=== PATIENT | female | born 1990 | race Caucasian/White ===

== ENCOUNTER 2016-08-19 04:00 | Emergency (ER) | payer SELFPAY ==
[2016-08-19 04:10] VITALS: BP 123/74
[2016-08-19] MEDS ORDERED: PREDNISONE 20 MG TABLET PO ONE (04:11)
[2016-08-19] MEDS ORDERED: IPRATROPIUM/ALBUTEROL 0.5-2.5 MG/3 ML AMPUL NEB ONE (04:11)
[2016-08-19] MEDS: ALBUTEROL SULFATE 0.083% NEB 2.5 MG/3 ML AMPUL NEB SCH ×2 (04:15→04:43)
[2016-08-19] MEDS ORDERED: ALBUTEROL SULFATE HFA (90 MCG/PUFF) 8 GM MDI (1 MDI/ER DISP) IH ONE (05:15)
--- NOTE | 2016-08-19 05:15 | ER Document Report ---
ED General - General Chief Complaint: Asthma Exacerbation Stated Complaint: TROUBLE BREATHING Mode of Arrival: Ambulatory Information source: Patient Notes: Patient presents emergency department reports difficulty breathing. Reports nonproductive cough for the past week and half. Reports wheezing today. She reports she has been using her nebs a few times a day and inhaler but ran out of both medications today. Patient reports history of asthma denies hospitalizations or intubation for this. Denies fever vomiting diarrhea. Patient does smoke. TRAVEL OUTSIDE OF THE [place] IN LAST 30 DAYS: No - HPI Onset: Last week Onset/Duration: Persistent Quality of pain: No pain Associated symptoms: None Exacerbated by: Denies Relieved by: Denies Similar symptoms previously: Yes Recently seen / treated by doctor: No - Related Data Allergies/Adverse Reactions: No Known Allergies Allergy (Verified 04/18/16 20:10) Home Medications: Current Home Medications Albuterol Sulfate [Albuterol Sulfate 2.5mg/3 mL] 1 vial IH Q4 PRN 08/19/16 [ History] Budesonide [Pulmicort Neb 0.25 mg/2 ml Ampul] 0.25 mg NEB Q6HP PRN 08/19/16 [ History] Past Medical History - General Information source: Patient Last Menstrual Period: now - Social History Smoking Status: Current Every Day Smoker Cigarette use (# per day): Yes Frequency of alcohol use: None Drug Abuse: None Family History: Reviewed & Not Pertinent Patient has suicidal ideation: No Patient has homicidal ideation: No Pulmonary Medical History: Reports: Hx Asthma Neurological Medical History: Reports: Hx Migraine Renal/ Medical History: Denies: Hx Peritoneal Dialysis Past Surgical History: Reports: Hx Cholecystectomy - Immunizations Immunizations up to date: Yes Hx Diphtheria, Pertussis, Tetanus Vaccination: Yes Review of Systems - Review of Systems Notes: Review HPI for review of systems., All other systems negative Physical Exam - Vital signs Vitals: Temp Pulse Resp BP Pulse Ox 97.6 F 92 20 123/74 98 08/19/16 04:07 08/19/16 04:07 08/19/16 04:07 08/19/16 04:07 08/19/16 04:07 - Notes Notes: PHYSICAL EXAMINATION: GENERAL: Well-appearing and in no acute distress nontoxic looking HEAD: Atraumatic, normocephalic. EYES: Pupils equal round and reactive to light, extraocular movements intact, sclera anicteric, conjunctiva are normal. speaks in clear voice ENT: nares patent, oropharynx clear without exudates. Moist mucous membranes. NECK: Normal range of motion, supple without lymphadenopathy LUNGS: CTAB and equal. + expiratory wheeze. no rales or rhonchi. HEART: Regular rate and rhythm without murmurs ABDOMEN: Soft, no tenderness. No guarding, no rebound EXTREMITIES: Normal range of motion, no pitting edema. No cyanosis. NEUROLOGICAL: Cranial nerves grossly intact. Normal sensory/motor exams. PSYCH: Normal mood, normal affect. SKIN: Warm, Dry, normal turgor, no rashes or lesions noted Course - Re-evaluation Re-evalutation: 08/19/16 Patient has good in no distress speaks in clear voice no shortness of breath. Patient will be prescribed steroids and neb treatments , sent home with the albuterol inhaler. Patient instructed on the importance of quit smoking. She verbalized understanding to all information. - Vital Signs Vital signs: Temp Pulse Resp BP Pulse Ox 97.6 F 92 20 123/74 98 08/19/16 04:07 08/19/16 04:07 08/19/16 04:07 08/19/16 04:07 08/19/16 04:07 Discharge - Discharge Clinical Impression: Asthma exacerbation, Cough Condition: Stable Disposition: HOME, SELF-CARE Instructions: Inhaled Bronchodilators ([facility]), Stop Smoking ([facility]), Asthma ([facility]) Additional Instructions: *You have been evaluated for a cough, asthma exacerbation *Take medication as prescribed *Increase fluids *Quit smoking *Use inhaler and neb treatments as prescribed *Monitor your temperature, take Tylenol as indicated *Follow up with a primary care provider within one week for recheck *Return to ED for increasing fever, cough, worsening condition, changes, needs, difficulty breathing, concerns Prescriptions: Albuterol Sulfate [Ventolin 0.083% Neb 2.5 mg/3 mL Ampul] 1 vial NEB Q4 #1 unit Prednisone 60 mg PO DAILY #9 tablet Forms: Smoking Cessation Education, Elevated Blood Pressure
== END 2016-08-19 05:31 | disposition home or self-care (01) ==
LOC: ER 04:00
DX: J45.901 Unspecified asthma with (acute) exacerbation (principal); R05 Cough; R06.02 Shortness of breath; Z79.899 Other long term (current) drug therapy; F17.210 Nicotine dependence, cigarettes, uncomplicated
CPT/HCPCS: 94640 ×2; 99284; J7512; J3490; J7620

== ENCOUNTER 2016-09-09 23:24 | Emergency (ER) | payer SELFPAY ==
[2016-09-10] MEDS ORDERED: PREDNISONE 20 MG TABLET PO ONE (00:34)
[2016-09-10] MEDS ORDERED: IPRATROPIUM/ALBUTEROL 0.5-2.5 MG/3 ML AMPUL NEB ONE (00:34)
[2016-09-10] MEDS: ALBUTEROL SULFATE 0.083% NEB 2.5 MG/3 ML AMPUL NEB SCH ×2 (00:47→02:12)
[2016-09-10] MEDS ORDERED: HYDROCODONE/ACETAMINOPHEN 5-325 MG TABLET PO ONE (02:18)
--- NOTE | 2016-09-10 02:33 | ER Document Report ---
ED General - General Chief Complaint: Asthma Exacerbation Stated Complaint: OVER HEATING AND CANT BREATH Time seen by provider: 02:15 Notes: Patient is a 26-year-old female with a history of asthma that comes emergency department for chief complaint of wheezing, cough, sinus pain, postnasal drip, and productive yellowish greenish sputum. Patient states she had chills over the past day or so. She states she was evaluated about a month ago, given albuterol treatments, she has been using albuterol at home. Patient states she smokes. LMP within the past month. Denies any other medical history. TRAVEL OUTSIDE OF THE [place] IN LAST 30 DAYS: No - Related Data Allergies/Adverse Reactions: No Known Allergies Allergy (Verified 04/18/16 20:10) Past Medical History - General Information source: Patient - Social History Smoking Status: Current Every Day Smoker Smoking Education Provided: Yes - <3 min Frequency of alcohol use: None Drug Abuse: None Lives with: Family Family History: Reviewed & Not Pertinent Pulmonary Medical History: Reports: Hx Asthma Neurological Medical History: Reports: Hx Migraine Renal/ Medical History: Denies: Hx Peritoneal Dialysis Past Surgical History: Reports: Hx Cholecystectomy - Immunizations Immunizations up to date: Yes Hx Diphtheria, Pertussis, Tetanus Vaccination: Yes Review of Systems - Review of Systems Constitutional: No symptoms reported EENT: See HPI Cardiovascular: No symptoms reported Respiratory: See HPI Gastrointestinal: No symptoms reported Genitourinary: No symptoms reported Female Genitourinary: No symptoms reported Musculoskeletal: No symptoms reported Skin: No symptoms reported Hematologic/Lymphatic: No symptoms reported Neurological/Psychological: No symptoms reported Physical Exam - Vital signs Vitals: Temp Pulse Resp BP Pulse Ox 98.6 F 112 H 24 H 128/67 H 94 09/10/16 00:28 09/10/16 00:28 09/10/16 00:28 09/10/16 00:28 09/10/16 00:28 Interpretation: Normal - General General appearance: Appears well In distress: None - HEENT Head: Normocephalic, Atraumatic Eyes: Normal Conjunctiva: Normal Extraocular movements intact: Yes Eyelashes: Normal Pupils: PERRL Ears: Normal External canal: Normal Tympanic membrane: Normal Sinus: Maxillary - Mild tenderness over the bilateral maxillary sinuses Nasal: Other - Nasal congestion with no abnormalities otherwise Mouth/Lips: Normal Mucous membranes: Normal Pharynx: Erythema - mild. No: Exudate Neck: Normal. No: Anterior cervical chain, Posterior cervical chain - Respiratory Respiratory status: No respiratory distress. No: Tachypnea - Patient is not in respiratory distress on my exam Chest status: Nontender Breath sounds: Decreased air movement, Nonproductive cough, Wheezing - Faint end expiratory wheezes, good breath sounds otherwise Chest palpation: Normal - Cardiovascular Rhythm: Regular. No: Tachycardia - Not tachycardic on my exam Heart sounds: Normal auscultation, S1 appreciated, S2 appreciated Murmur: No - Abdominal Inspection: Normal Distension: No distension Bowel sounds: Normal Tenderness: Nontender. No: Tender, Guarding Organomegaly: No organomegaly - Back Back: Normal, Nontender. No: Tender - Extremities General upper extremity: Normal inspection, Nontender, Normal color, Normal ROM , Normal temperature General lower extremity: Normal inspection, Nontender, Normal color, Normal ROM , Normal temperature, Normal weight bearing. No: Deirdre's sign - Neurological Neuro grossly intact: Yes Cognition: Normal Orientation: AAOx4 Dexter Coma Scale Eye Opening: Spontaneous Randal Coma Scale Verbal: Oriented Dexter Coma Scale Motor: Obeys Commands Randal Coma Scale Total: 15 Speech: Normal Motor strength normal: LUE, RUE, LLE, RLE Sensory: Normal - Psychological Associated symptoms: Normal affect, Normal mood - Skin Skin Temperature: Warm Skin Moisture: Dry Skin Color: Normal Course - Re-evaluation Re-evalutation: Examination is consistent with sinusitis, bronchitis, asthma exacerbation. Discussed tobacco abuse and smoking cessation, patient states that she is motivated to try to stop, treating for asthma exacerbation and covering with antibiotics. Discussed return precautions in detail, discussed primary care follow-up, patient states understanding and agreement. - Vital Signs Vital signs: Temp Pulse Resp BP Pulse Ox 98.0 F 90 18 121/62 100 09/10/16 04:20 09/10/16 04:20 09/10/16 04:20 09/10/16 04:20 09/10/16 04:20 Discharge - Discharge Clinical Impression: Asthma exacerbation, Cough, Tobacco abuse Sinusitis Qualifiers: Sinusitis location: frontal Chronicity: acute Recurrence: non-recurrent Qualified Code(s): J01.10 - Acute frontal sinusitis, unspecified Condition: Stable Disposition: HOME, SELF-CARE Instructions: Oral Narcotic Medication ([facility]) Additional Instructions: Chest x-ray does not show pneumonia or other abnormality. Examination is consistent with an upper respiratory and sinus infection with asthma exacerbation. Take prednisone as directed, use your albuterol at home, take the doxycycline antibiotic as directed. Stop smoking. Follow-up with primary care. Return the emergency department for any concerning or worsening symptoms. Prescriptions: Albuterol Sulfate [Proair HFA Inhalation Aerosol 8.5 gm MDI] 2 puff IH Q4H PRN # 1 mdi PRN Reason: Doxycycline Hyclate 100 mg PO BID #14 capsule Phenylephrine HCl/Cod/Prometh [Phenergan Vc-Codeine Syrup] 5 ml PO Q6 PRN #1 bottle PRN Reason: Prednisone [Deltasone 20 mg Tablet] 3 tab PO DAILY 5 Days Forms: Smoking Cessation Education
[2016-09-10] MEDS ORDERED: DOXYCYCLINE HYCLATE 100 MG TABLET PO ONE (03:28)
[2016-09-10 05:34] VITALS: BP 121/62
== END 2016-09-10 04:30 | disposition home or self-care (01) ==
LOC: ER 23:24
DX: J01.10 Acute frontal sinusitis, unspecified (principal); J45.901 Unspecified asthma with (acute) exacerbation; R05 Cough; R06.2 Wheezing; F17.200 Nicotine dependence, unspecified, uncomplicated
CPT/HCPCS: 94640 ×2; 99285; 71020; J7512; J7620

== ENCOUNTER 2018-01-28 03:58 | Emergency (ER) | payer SELFPAY ==
[2018-01-28 04:07] VITALS: BP 103/83
[2018-01-28] MEDS ORDERED: PREDNISONE 20 MG TABLET PO ONE (04:13)
[2018-01-28] MEDS ORDERED: IPRATROPIUM/ALBUTEROL 0.5-2.5 MG/3 ML AMPUL NEB ONE ×2 (04:13→05:34)
[2018-01-28] MEDS: ALBUTEROL SULFATE 0.083% NEB 2.5 MG/3 ML AMPUL NEB SCH ×2 (04:25→04:53)
--- NOTE | 2018-01-28 05:36 | ER Document Report ---
ED Medical Screen (RME) - General Chief Complaint: Shortness Of Breath Stated Complaint: TROUBLE BREATHING Time Seen by Provider: 01/28/18 05:30 Notes: 27-year-old female, history of asthma, smoker, comes by EMS for chief complaint of difficulty breathing, tightness and pain in the chest, symptoms started about 2 days ago. Denies fever. Reports some cough/cold symptoms. TRAVEL OUTSIDE OF THE [place] IN LAST 30 DAYS: No - Related Data Allergies/Adverse Reactions: No Known Allergies Allergy (Verified 01/28/18 03:59) Past Medical History Pulmonary Medical History: Reports: Hx Asthma Neurological Medical History: Reports: Hx Migraine Renal/ Medical History: Denies: Hx Peritoneal Dialysis Past Surgical History: Reports: Hx Cholecystectomy - Immunizations Immunizations up to date: Yes Hx Diphtheria, Pertussis, Tetanus Vaccination: Yes Physical Exam - Vital signs Vitals: Temp Pulse Resp BP Pulse Ox 97.3 F 85 22 H 103/83 92 01/28/18 04:06 01/28/18 04:06 01/28/18 04:06 01/28/18 04:06 01/28/18 04:06 - Respiratory Respiratory status: No respiratory distress Breath sounds: Wheezing - Some inspiratory and expiratory wheezes, borderline tachypnea, no labored breathing or distress Course - Vital Signs Vital signs: Temp Pulse Resp BP Pulse Ox 97.3 F 85 22 H 103/83 92 01/28/18 04:06 01/28/18 04:06 01/28/18 04:06 01/28/18 04:06 01/28/18 04:06
[2018-01-28] MEDS ORDERED: ALBUTEROL SULFATE HFA (90 MCG/PUFF) 8 GM MDI (1 MDI/ER DISP) IH ONE (06:29)
[2018-01-28] MEDS ORDERED: BUDESONIDE/FORMOTEROL 80-4.5 MCG 60 PUFF/6.9 GM MDI IH ONE (06:48)
--- NOTE | 2018-01-28 07:47 | RADIOLOGY REPORT (SQ) ---
Chest single view on 01/28/2018 CLINICAL INDICATION: Chest pain COMPARISON: 09/10/2016 FINDINGS: There is evidence of prior granulomatous disease within the chest. The lungs are otherwise clear. Cardiac, hilar and mediastinal contours are within normal limits. Pulmonary vascularity is within normal limits. No bony abnormality is noted. Impression: No active disease.
== END 2018-01-28 07:40 | disposition home or self-care (01) ==
LOC: ER 03:58
DX: R06.00 Dyspnea, unspecified (principal); Z90.49 Acquired absence of other specified parts of digestive tract
CPT/HCPCS: 94640 ×2; 71045; J3490 ×2; J7512; J7620

== ENCOUNTER 2019-02-04 12:15 | Emergency (ER) | payer SELFPAY ==
[2019-02-04] MEDS ORDERED: IPRATROPIUM/ALBUTEROL 0.5-2.5 MG/3 ML AMPUL NEB ONE (12:41)
--- NOTE | 2019-02-04 12:42 | ER Document Report ---
ED Medical Screen (RME) - General Stated Complaint: FEVER, BREATHING PROBLEMS, VOMITING Time Seen by Provider: 02/04/19 12:38 Mode of Arrival: Wheelchair Information source: Patient Notes: 29-year-old female presents emergency department with nasal congestion and difficulty breathing. Reports history of asthma. Reports she is used her nebulizer machine multiple times without relief of symptoms. Reports symptoms s tarted yesterday. Reports temperature of 102 this morning but she did not take anything for her fever. Denies vomiting diarrhea. Reports boyfriend just got back from [place] a couple weeks ago. Respiratory rate even unlabored. Patient appears to have a lot of nasal congestion. I have greeted and performed a rapid initial assessment of this patient. A comprehensive ED assessment and evaluation of the patient, analysis of test results and completion of the medical decision making process will be conducted by additional ED providers. Dictation of this chart was performed using voice recognition software; therefore, there may be some unintended grammatical errors. TRAVEL OUTSIDE OF THE [place] IN LAST 30 DAYS: No - Related Data Allergies/Adverse Reactions: No Known Allergies Allergy (Verified 02/04/19 12:36) Past Medical History Pulmonary Medical History: Reports: Hx Asthma Neurological Medical History: Reports: Hx Migraine Renal/ Medical History: Denies: Hx Peritoneal Dialysis Past Surgical History: Reports: Hx Cholecystectomy - Immunizations Immunizations up to date: Yes Hx Diphtheria, Pertussis, Tetanus Vaccination: Yes Physical Exam - Vital signs Vitals: Temp Pulse BP Pulse Ox 98.2 F 106 H 113/70 95 02/04/19 12:26 02/04/19 12:26 02/04/19 12:26 02/04/19 12:26 Course - Vital Signs Vital signs: Temp Pulse Resp BP Pulse Ox 98.2 F 106 H 113/70 95 02/04/19 12:26 02/04/19 12:26 02/04/19 12:26 02/04/19 12:26
[2019-02-04 13:31] LABS: ABSOLUTE EOSINOPHILS # (AUTO) 0.2 10^3/uL (0.0-0.6); ABSOLUTE LYMPHOCYTES (AUTO) 0.7 10^3/uL (0.5-4.7); ABSOLUTE MONOCYTES (AUTO) 0.4 10^3/uL (0.1-1.4); ABSOLUTE NEUT (AUTO) 11.7 10^3/uL (1.7-8.2); BASOPHILS % (AUTO) 0.2 % (0-2); EOSINOPHILS % (AUTO) 1.6 % (0-6); HEMATOCRIT 41.2 % (36.0-47.0); HEMOGLOBIN 13.9 g/dL (12.0-15.5); LYMPHOCYTES % (AUTO) 5.4 % (13-45); MEAN CORPUSCULAR HEMOGLOBIN 29.8 pg (27.0-33.4); MEAN CORPUSCULAR HGB CONC 33.7 g/dL (32.0-36.0); MEAN CORPUSCULAR VOLUME 88 fl (80-97); MONOCYTES % (AUTO) 3.4 % (3-13); PLATELET COUNT 285 10^3/uL (150-450); RED BLOOD COUNT 4.66 10^6/uL (3.72-5.28); RED CELL DISTRIBUTION WIDTH 13.8 % (11.5-14.0); SEGMENTED NEUTROPHILS % (AUTO) 89.4 % (42-78); TOTAL CELLS COUNTED % (AUTO) 100 %
[2019-02-04 14:05] LABS: APPEARANCE,URINE SLIGHTLY-CLOUDY; BILIRUBIN,URINE NEGATIVE (NEGATIVE); COLOR,URINE YELLOW; GLUCOSE, URINE NEGATIVE (NEGATIVE); KETONES,URINE NEGATIVE (NEGATIVE); LEUKOCYTE ESTERASE,URINE TRACE (NEGATIVE); NITRITE,URINE NEGATIVE (NEGATIVE); PROTEIN,URINE NEGATIVE (NEGATIVE); URINE SPECIFIC GRAVITY 1.017; UROBILINOGEN,URINE NEGATIVE mg/dL (<2.0)
[2019-02-04 14:14] LABS: ALBUMIN 4.8 g/dL (3.5-5.0); ALKALINE PHOSPHATASE 68 U/L (38-126); ANION GAP 10 (5-19); ASPARTATE AMINO TRANSFERASE 25 U/L (14-36); BILIRUBIN,DIRECT 0.1 mg/dL (0.0-0.4); BILIRUBIN,TOTAL 1.1 mg/dL (0.2-1.3); BLOOD UREA NITROGEN 14 mg/dL (7-20); CALCIUM 9.9 mg/dL (8.4-10.2); CARBON DIOXIDE 25 mmol/L (22-30); CHLORIDE 103 mmol/L (98-107); GLUCOSE 119 mg/dL (75-110); POTASSIUM 3.9 mmol/L (3.6-5.0); TOTAL PROTEIN 8.2 g/dL (6.3-8.2)
[2019-02-04] MEDS ORDERED: ALBUTEROL SULFATE 0.083% NEB 2.5 MG/3 ML AMPUL NEB ONE ×2 (14:24→15:12)
[2019-02-04] MEDS ORDERED: NORMAL SALINE 1000 ML 1,000 ML IV ONE (14:24)
[2019-02-04] MEDS ORDERED: PREDNISONE 20 MG TABLET PO ONE (14:24)
[2019-02-04] MEDS ORDERED: KETOROLAC TROMETHAMINE INJ/PF 30 MG/1 ML SDV IV ONE (14:26)
[2019-02-04] MEDS ORDERED: PROCHLORPERAZINE EDISYLATE INJ 10 MG/2 ML VIAL IV ONE (14:27)
[2019-02-04] MEDS ORDERED: DIPHENHYDRAMINE HCL 50 MG/ML VIAL IV ONE (14:27)
--- NOTE | 2019-02-04 14:33 | ER Document Report ---
ED General - General Chief Complaint: Asthma Exacerbation Stated Complaint: FEVER, BREATHING PROBLEMS, VOMITING Time Seen by Provider: 02/04/19 12:38 Primary Care Provider: [facility] [Provider Group] - Follow up as needed Mode of Arrival: Wheelchair Information source: Patient Notes: Patient presents complaining of productive cough for the past 3 days. Patient states that she has had a fever of over 102 today. Patient denies taking any medication to treat her fever and is presently afebrile. Patient reports shortness of breath and chest pain. Patient complains of worsening pain with coughing. Patient also reports nausea vomiting x7 episodes today. Patient denies any diarrhea. Patient denies any urinary symptoms. Patient does complain of headache pain as well as sore throat. Patient denies any recent immobilization, bedrest or travel. TRAVEL OUTSIDE OF THE [place] IN LAST 30 DAYS: No - HPI Onset: Other - 3 days Onset/Duration: Worse Quality of pain: Achy Pain Level: 4 Associated symptoms: Body/muscle aches, Chest pain, Productive cough, Fever, Nausea, Vomiting, Shortness of breath, Sore throat. denies: Diarrhea Exacerbated by: Denies Relieved by: Denies Similar symptoms previously: No Recently seen / treated by doctor: No - Related Data Allergies/Adverse Reactions: No Known Allergies Allergy (Verified 02/04/19 12:36) Past Medical History - General Information source: Patient - Social History Smoking Status: Current Every Day Smoker Chew tobacco use (# tins/day): No Smoking Education Provided: Yes Frequency of alcohol use: Occasional Drug Abuse: None Occupation: Foodservice Lives with: Spouse/Significant other Family History: Reviewed & Not Pertinent Patient has suicidal ideation: No Patient has homicidal ideation: No Pulmonary Medical History: Reports: Hx Asthma Neurological Medical History: Reports: Hx Migraine Renal/ Medical History: Denies: Hx Peritoneal Dialysis Past Surgical History: Reports: Hx Cholecystectomy - Immunizations Immunizations up to date: Yes Hx Diphtheria, Pertussis, Tetanus Vaccination: Yes Review of Systems - Review of Systems Constitutional: Chills, Fever, Malaise EENT: Throat pain. denies: Ear pain, Difficulty swallowing, Throat swelling Cardiovascular: Chest pain Respiratory: Cough, Short of breath, Sputum Gastrointestinal: Nausea, Vomiting. denies: Abdominal pain, Diarrhea Genitourinary: No symptoms reported. denies: Dysuria Female Genitourinary: No symptoms reported. denies: Musculoskeletal: No symptoms reported Skin: No symptoms reported Hematologic/Lymphatic: No symptoms reported Neurological/Psychological: Headaches Physical Exam - Vital signs Vitals: Temp Pulse BP Pulse Ox 98.2 F 106 H 113/70 95 02/04/19 12:26 02/04/19 12:26 02/04/19 12:26 02/04/19 12:26 - General General appearance: Alert In distress: None - HEENT Head: Normocephalic, Atraumatic Eyes: Normal Conjunctiva: Normal Ears: Normal External canal: Normal Tympanic membrane: Normal Nasal: Normal Mouth/Lips: Normal Mucous membranes: Normal Pharynx: Erythema. No: Exudate, Post nasal drainage, Potential airway comprom. Neck: Normal, Supple. No: Lymphadenopathy - Respiratory Respiratory status: No respiratory distress. No: Labored, Pursed lip breathing Chest status: Tender, Pain with cough Breath sounds: Nonproductive cough, Wheezing Chest palpation: Normal - Cardiovascular Rhythm: Regular, Tachycardia Heart sounds: S1 appreciated, S2 appreciated - Abdominal Inspection: Normal Distension: No distension Bowel sounds: Normal Tenderness: Nontender Organomegaly: No organomegaly - Back Back: Normal, Nontender. No: CVA tenderness - Extremities General upper extremity: Normal inspection, Normal ROM General lower extremity: Normal inspection, Nontender, Normal ROM - Neurological Neuro grossly intact: Yes Cognition: Normal Randal Coma Scale Eye Opening: Spontaneous Randal Coma Scale Verbal: Oriented Stevinson Coma Scale Motor: Obeys Commands Randal Coma Scale Total: 15 - Psychological Associated symptoms: Normal affect, Normal mood - Skin Skin Temperature: Warm Skin Moisture: Dry Skin Color: Normal Course - Re-evaluation Re-evalutation: 02/04/19 Patient's respirations even unlabored. Patient does continue with scattered wheezing, although has good air movement bilaterally. Patient does report feeling better at this time. Discussed smoking cessation. Good return precautions discussed - Vital Signs Vital signs: Temp Pulse Resp BP Pulse Ox 98.2 F 103 H 15 124/72 97 02/04/19 17:01 02/04/19 17:01 02/04/19 17:01 02/04/19 17:01 02/04/19 17:01 - Laboratory Result Diagrams: 02/04/19 13:20 02/04/19 13:20 Laboratory results interpreted by me: 09/02/04/19 02/04/19 13:20 13:20 13:20 WBC 13.0 H Lymph % (Auto) 5.4 L Absolute Neuts (auto) 11.7 H Seg Neutrophils % 89.4 H Creatinine 0.51 L Glucose 119 H Urine Blood SMALL H Ur Leukocyte Esterase TRACE H 02/04/19 16:37 Labs- Entire Visit 02/04/19 02/04/19 02/04/19 13:20 13:20 13:20 WBC 13.0 H RBC 4.66 Hgb 13.9 Hct 41.2 MCV 88 MCH 29.8 MCHC 33.7 RDW 13.8 Plt Count 285 Lymph % (Auto) 5.4 L Frederick % (Auto) 3.4 Eos % (Auto) 1.6 Baso % (Auto) 0.2 Absolute Neuts (auto) 11.7 H Absolute Lymphs (auto) 0.7 Absolute Monos (auto) 0.4 Absolute Eos (auto) 0.2 Absolute Basos (auto) 0.0 Seg Neutrophils % 89.4 H D-Dimer Sodium 138.1 Potassium 3.9 Chloride 103 Carbon Dioxide 25 Anion Gap 10 BUN 14 Creatinine 0.51 L Est GFR ( Amer) > 60 Est GFR (MDRD) Non-Af > 60 Glucose 119 H Calcium 9.9 Total Bilirubin 1.1 Direct Bilirubin 0.1 Neonat Total Bilirubin Not Reportable Neonat Direct Bilirubin Not Reportable Neonat Indirect Bili Not Reportable AST 25 ALT 16 Alkaline Phosphatase 68 Total Protein 8.2 Albumin 4.8 Lipase Urine Color YELLOW Urine Appearance SLIGHTLY-CLOUDY Urine pH 7.0 Ur Specific [place] 1.017 Urine Protein NEGATIVE Urine Glucose (UA) NEGATIVE Urine Ketones NEGATIVE Urine Blood SMALL H Urine Nitrite NEGATIVE Urine Bilirubin NEGATIVE Urine Urobilinogen NEGATIVE Ur Leukocyte Esterase TRACE H Urine WBC (Auto) 6 Urine RBC (Auto) 3 Urine Bacteria (Auto) TRACE Squamous Epi Cells Auto 16 Urine Mucus (Auto) RARE Urine Ascorbic Acid NEGATIVE Urine HCG, Qual NEGATIVE Group A Strep Rapid 02/04/19 02/04/19 02/04/19 13:20 15:13 15:13 WBC RBC Hgb Hct MCV MCH MCHC RDW Plt Count Lymph % (Auto) Frederick % (Auto) Eos % (Auto) Baso % (Auto) Absolute Neuts (auto) Absolute Lymphs (auto) Absolute Monos (auto) Absolute Eos (auto) Absolute Basos (auto) Seg Neutrophils % D-Dimer 0.35 Sodium Potassium Chloride Carbon Dioxide Anion Gap BUN Creatinine Est GFR ( Amer) Est GFR (MDRD) Non-Af Glucose Calcium Total Bilirubin Direct Bilirubin Neonat Total Bilirubin Neonat Direct Bilirubin Neonat Indirect Bili AST ALT Alkaline Phosphatase Total Protein Albumin Lipase 73.5 Urine Color Urine Appearance Urine pH Ur Specific [place] Urine Protein Urine Glucose (UA) Urine Ketones Urine Blood Urine Nitrite Urine Bilirubin Urine Urobilinogen Ur Leukocyte Esterase Urine WBC (Auto) Urine RBC (Auto) Urine Bacteria (Auto) Squamous Epi Cells Auto Urine Mucus (Auto) Urine Ascorbic Acid Urine HCG, Qual Group A Strep Rapid NEGATIVE - Diagnostic Test Radiology reviewed: Reports reviewed Discharge - Discharge Clinical Impression: Sore throat Nausea & vomiting Qualifiers: Vomiting type: unspecified Vomiting Intractability: non-intractable Qualified Code(s): R11.2 - Nausea with vomiting, unspecified Headache Qualifiers: Headache type: unspecified Headache chronicity pattern: unspecified pattern Intractability: not intractable Qualified Code(s): R51 - Headache Asthma exacerbation Qualifiers: Asthma severity: unspecified severity Asthma persistence: unspecified Qualified Code(s): J45.901 - Unspecified asthma with (acute) exacerbation Condition: Stable Disposition: HOME, SELF-CARE Instructions: Asthma ([facility]), Stop Smoking ([facility]), Steroid Medication Additional Instructions: Return immediately for any new or worsening symptoms Followup with your primary care provider, call tomorrow to make a followup appointment Cultures are pending, will call if you need any different treatment Stop smoking VOMITING: Vomiting (or nausea without vomiting) can be caused by many other different problems. It can mean that something's wrong with the stomach, such as ulcers or inflammation or the intestinal tract, such as appendicitis. But it can also be a symptom of a problem that has nothing to do with the stomach or intestines. Vomiting is common with severe headaches, earaches, tonsillitis, and kidney infections, etc. We see it with pneumonia or heart attacks. Drugs can cause nausea and vomiting. Many abdominal problems cause vomiting; for example, gallstones, kidney stones, pancreatitis, and intestinal obstruction (blocked bowels). In most cases, curing the vomiting depends on fixing the problem that caused it. For temporary relief, we may use an anti-nausea medicine. For home use, we can prescribe suppositories, chewable pills, pills that dissolve in the mouth, or liquid anti-nausea drugs. If the vomiting seems to be caused by a problem in the stomach, acid-suppressing drugs may be prescribed as well. It's important to avoid dehydration. Sip small amounts of clear liquids (soft drinks, tea, broth, etc) . Try to take fluids frequently even if you are vomiting to prevent dehydration. Take increasing amounts of fluid and when liquids are being consumed successfully, advance to small amounts of bland food (toast, soups, mashed potatoes, etc.) until you are able to resume a regular diet. Avoid aspirin, tobacco, and alcohol. If the vomiting worsens, if the problem that's making you vomit worsens, or if there's evidence of bleeding in the stomach (such as black, tarry stool, or bloody or black vomit), you should return immediately. Also, return if abdominal pain worsens or becomes localized to one area or you develop high fever. Call your doctor if you aren't improved in 24 hours. VIRAL SYNDROME: The physician has diagnosed a viral infection. Viruses not only cause "colds," but can cause many different symptoms including generalized aching, fev er, headache, cough, diarrhea, nausea, vomiting, and fatigue. The treatment, for the most part, is simply relief of symptoms. This means that antibiotics are usually not given. Rest, fluids, pain medications and, occasionally, medication for the specific symptoms that are most bothersome will be prescribed. Use good handwashing to avoid passing the virus to others. Shared toys should be cleaned with disinfectant. Clean the toilets, sinks, and counter surfaces in bathrooms. Launder clothing in hot water. Contact the physician if you develop any new or unusual symptoms such as severe headache, stiff neck, high fever, chest pain, productive cough, or shortness of breath. You should be rechecked if you don't see marked improvement within seven to 10 days. INTRAVENOUS (I V) FLUIDS: As part of your care today, you received intravenous (IV) fluids. IV fluids are administered to patients who are dehydrated or to those who have certain chemical (electrolyte) abnormalities that need correcting. ANTINAUSEA MEDICATION: You have been given a medication to suppress nausea and vomiting. This type of medication can be given as a shot, pill, or suppository. It will usually last for many hours. Pills and shots usually last six to eight hours. For the typical illness, only one or two doses of the medication may be necessary. Mild lightheadedness may occur. This type of medicine can cause drowsiness. Do not drive or operate dangerous machinery while under its influence. Do not mix with alcohol. See your doctor at once if you have muscle spasms or tightness, or uncontrollable motions (particularly of the neck, mouth, or jaw). Persistent vomiting or severe lightheadedness should also be evaluated by the physician. FOLLOW-UP CARE: If you have been referred to a physician for follow-up care, call the physicians office for an appointment as you were instructed or within the next two days. If you experience worsening or a significant change in your symptoms, notify the physician immediately or return to the Emergency Department at any time for re-evaluation. Prescriptions: Benzonatate [Tessalon Perle 100 mg Capsule] 100 mg PO Q8HP PRN #20 cap PRN Reason: Prednisone [Deltasone 20 mg Tablet] 3 tab PO DAILY 4 Days tablet Promethazine HCl [Phenergan 25 mg Tablet] 25 mg PO Q6H PRN #10 tablet PRN Reason: Albuterol Sulfate [Ventolin 0.083% Neb 2.5 mg/3 ml Ampul] 1 vial NEB Q4 PRN #30 vial PRN Reason: Forms: Smoking Cessation Education, Return to Work Referrals: [facility] [Provider Group] - Follow up as needed
--- NOTE | 2019-02-04 15:43 | RADIOLOGY REPORT (SQ) ---
EXAM DESCRIPTION: CHEST 2 VIEWS COMPLETED DATE/TIME: 02/04/2019 3:31 pm REASON FOR STUDY: cough COMPARISON: PA and lateral views of the chest from 09/10/2016. EXAM PARAMETERS: NUMBER OF VIEWS: two views TECHNIQUE: Digital Frontal and Lateral radiographic views of the chest acquired. RADIATION DOSE: NA LIMITATIONS: none FINDINGS: LUNGS AND PLEURA: No consolidation, pleural effusion or pneumothorax. MEDIASTINUM AND HILAR STRUCTURES: No mediastinal or hilar contour abnormality. HEART AND VASCULAR STRUCTURES: The cardiac silhouette and pulmonary vasculature are within normal espinoza its. BONES: No acute findings. HARDWARE: None. OTHER: No other finding. IMPRESSION: No acute cardiopulmonary process. TECHNICAL DOCUMENTATION: JOB ID: [id number] [employer]- All Rights Reserved Reading location - IP/workstation name: [email or web address]
[2019-02-04 17:04] VITALS: BP 124/72
== END 2019-02-04 17:04 | disposition home or self-care (01) ==
LOC: ER 12:15
DX: J45.901 Unspecified asthma with (acute) exacerbation (principal); R05 Cough; J02.9 Acute pharyngitis, unspecified; R11.2 Nausea with vomiting, unspecified; R51 Headache; R06.02 Shortness of breath; R07.9 Chest pain, unspecified; M79.10 Myalgia, unspecified site; F17.200 Nicotine dependence, unspecified, uncomplicated; R50.9 Fever, unspecified; R53.81 Other malaise
CPT/HCPCS: 94640 ×2; 99283; 96361; 96374; 96375; 36415; 87070; 87086; 87880; 83690; 85025; 81025; 80053; 81001; 85379; 71046; J1200; J1885; J7512; J0780; J7030; J7620